=== PATIENT | female | born 1975 | race Caucasian/White ===

== ENCOUNTER 2019-05-12 00:01 | Inpatient (IN) | payer OTHER ==
[~2019-05-12] VITALS: Ht 157.5 cm; Wt 73.5 kg
[2019-05-12] MEDS ORDERED: LR 1,000 ML IV SCH (01:08)
[2019-05-12] MEDS ORDERED: LABETALOL HCL 100 MG TABLET PO SCH ×2 (01:30→09:00)
[2019-05-12 02:04] LABS: BASOPHILS % (AUTO) 0.6 % (0.0-2.0); EOSINOPHILS # (AUTO) 0.1 K/uL (0.0-0.4); EOSINOPHILS % (AUTO) 1.3 % (0.0-4.0); HEMATOCRIT 30.6 % (36-48); HEMOGLOBIN 10.2 g/dL (12.0-16.0); LYMPHOCYTES # (AUTO) 2.1 K/uL (1.0-5.5); LYMPHOCYTES % (AUTO) 25.8 % (20.5-51.5); MEAN CORPUSCULAR HEMOGLOBIN 28 pg (27-31); MEAN CORPUSCULAR HGB CONC 33 % (32-36); MEAN CORPUSCULAR VOLUME 84 fL (79.0-98.0); MONOCYTES # (AUTO) 0.6 K/uL (0.0-1.0); MONOCYTES % (AUTO) 7.7 % (1.7-9.3); NEUTROPHILS # (AUTO) 5.3 K/uL (1.8-7.7); NEUTROPHILS % (AUTO) 64.6 % (40.0-70.0); PLATELET COUNT (AUTO) 254 K/uL (130-430); RED BLOOD CELL COUNT(AUTO) 3.66 MIL/uL (4.2-6.2); RED CELL DISTRIBUTION WIDTH 13.7 % (9.0-15.0); WHITE BLOOD COUNT (AUTO) 8.2 K/uL (4.8-10.8)
[2019-05-12 02:10] LABS: CALCIUM 8.3 mg/dL (8.4-11.0); CREATININE 0.51 mg/dL (0.55-1.30); POTASSIUM 3.5 mmol/L (3.5-5.1)
[2019-05-12 02:17] LABS: ALBUMIN 2.3 g/dL (3.4-4.8); TOTAL BILIRUBIN 0.3 mg/dL (0.0-1.0)
== END 2019-05-12 09:30 | disposition home or self-care (01) | DRG 566 ==
LOC: OBSVTOIN 00:01 → SPU 00:01
PROVIDERS: ADMIT Obstetrics & Gynecology; ATTEND Obstetrics & Gynecology
DX: O16.3 Unspecified maternal hypertension, third trimester (principal); Z3A.34 34 weeks gestation of pregnancy
CPT/HCPCS: 36415; 80053; 85025; 86592; 86886; 86900; 86901

== ENCOUNTER 2019-05-13 06:45 | Observation (INO) | payer OTHER ==
[~2019-05-13] VITALS: Ht 157.5 cm; Wt 73.5 kg
[2019-05-13] MEDS ORDERED: LABETALOL HCL 100 MG TABLET PO ONE (08:00)
== END 2019-05-13 10:35 | disposition home or self-care (01) ==
LOC: SPU 06:45
PROVIDERS: ADMIT Obstetrics & Gynecology; ATTEND Obstetrics & Gynecology
DX: O26.893 Other specified pregnancy related conditions, third trimester (principal); R03.0 Elevated blood-pressure reading, without diagnosis of hypertension; Z3A.34 34 weeks gestation of pregnancy
CPT/HCPCS: G0378

== ENCOUNTER 2019-05-26 01:50 | Observation (INO) | payer OTHER | END 2019-05-26 03:50 | disposition home or self-care (01) | LOC: SPU 01:50 | PROVIDERS: ADMIT Obstetrics & Gynecology; ATTEND Obstetrics & Gynecology | DX: O62.9 Abnormality of forces of labor, unspecified (principal); Z3A.37 37 weeks gestation of pregnancy | CPT/HCPCS: G0378 ==

== ENCOUNTER 2019-05-28 11:00 | Observation (INO) | payer OTHER | END 2019-05-28 12:20 | disposition home or self-care (01) | LOC: SPU 11:00 | PROVIDERS: ADMIT Obstetrics & Gynecology; ATTEND Obstetrics & Gynecology | DX: O16.3 Unspecified maternal hypertension, third trimester (principal); Z3A.37 37 weeks gestation of pregnancy | CPT/HCPCS: G0378 ==

== ENCOUNTER 2019-06-01 09:30 | Inpatient (IN) | payer OTHER ==
[~2019-06-01] VITALS: Ht 154.9 cm; Wt 73.5 kg
[2019-06-01] MEDS ORDERED: LR 500 ML IV ONE (10:42)
[2019-06-01] MEDS ORDERED: LR 1,000 ML IV SCH (10:42)
[2019-06-01] MEDS ORDERED: OXYTOCIN/0.9 % SODIUM CHLORIDE 1,000 ML IV SCH (10:42)
[2019-06-01] MEDS ORDERED: LR 1,000 ML IV ONE (10:42)
[2019-06-01] MEDS ORDERED: DINOPROSTONE 10 MG SUPP VG ONE (10:45)
[2019-06-01] MEDS ORDERED: TERBUTALINE SULFATE 1 MG/ML VIAL SUBCUT ONE (10:45)
[2019-06-01 11:25] LABS: BASOPHILS # (AUTO) 0.1 K/uL (0.0-0.2); BASOPHILS % (AUTO) 0.6 % (0.0-2.0); EOSINOPHILS # (AUTO) 0.1 K/uL (0.0-0.4); EOSINOPHILS % (AUTO) 0.8 % (0.0-4.0); HEMATOCRIT 31.1 % (36-48); HEMOGLOBIN 10.5 g/dL (12.0-16.0); LYMPHOCYTES # (AUTO) 1.7 K/uL (1.0-5.5); LYMPHOCYTES % (AUTO) 20.6 % (20.5-51.5); MEAN CORPUSCULAR HEMOGLOBIN 28 pg (27-31); MEAN CORPUSCULAR HGB CONC 34 % (32-36); MEAN CORPUSCULAR VOLUME 83 fL (79.0-98.0); MONOCYTES # (AUTO) 0.6 K/uL (0.0-1.0); MONOCYTES % (AUTO) 7.6 % (1.7-9.3); NEUTROPHILS # (AUTO) 5.9 K/uL (1.8-7.7); NEUTROPHILS % (AUTO) 70.4 % (40.0-70.0); PLATELET COUNT (AUTO) 243 K/uL (130-430); RED BLOOD CELL COUNT(AUTO) 3.73 MIL/uL (4.2-6.2); RED CELL DISTRIBUTION WIDTH 14.8 % (9.0-15.0); WHITE BLOOD COUNT (AUTO) 8.3 K/uL (4.8-10.8)
[2019-06-01] MEDS ORDERED: LABETALOL HCL 100 MG TABLET PO ONE (12:15)
[2019-06-01] MEDS ORDERED: LABETALOL HCL 100 MG TABLET ONE (12:42)
[2019-06-01] MEDS: NALBUPHINE HCL 10 MG/ML AMP IM PRN (20:05)
[2019-06-01] MEDS: LABETALOL HCL 100 MG TABLET PO SCH (21:04)
[2019-06-02] MEDS: NALBUPHINE HCL 10 MG/ML AMP IM PRN (08:32)
[2019-06-02] MEDS ORDERED: fentaNYL CITRATE/PF 100 MCG/2 ML AMP ONE (08:33)
[2019-06-02] MEDS ORDERED: ROPIVACAINE HCL/PF 0.2% 0 ML ONE (08:34)
[2019-06-02] MEDS ORDERED: OXYTOCIN/0.9 % SODIUM CHLORIDE 1,000 ML IV ONE (17:50)
[2019-06-02] MEDS ORDERED: OXYTOCIN/0.9 % SODIUM CHLORIDE 1,000 ML IV SCH (17:50)
[2019-06-02] MEDS ORDERED: WITCH HAZEL LEAF 1 MED.PAD MED.PAD TP PRN (18:00)
[2019-06-02] MEDS ORDERED: LANOLIN 7 GM OINT. TP PRN (18:00)
[2019-06-02] MEDS ORDERED: SENNOSIDES/DOCUSATE SODIUM 1 TAB TABLET(SENOKOT-S) PO PRN (18:00)
[2019-06-02] MEDS ORDERED: METHYLERGONOVINE MALEATE 0.2 MG TABLET PO PRN (18:00)
[2019-06-02] MEDS ORDERED: DOCUSATE SODIUM 100 MG CAPSULE PO PRN (18:00)
[2019-06-02] MEDS ORDERED: IBUPROFEN 600 MG TABLET ONE (18:02)
[2019-06-02] MEDS: LABETALOL HCL 100 MG TABLET PO SCH (21:43)
[2019-06-03] MEDS ORDERED: IBUPROFEN 600 MG TABLET PO PRN (04:00)
[2019-06-03] MEDS ORDERED: IBUPROFEN 600 MG TABLET ONE (04:05)
[2019-06-03 06:07] LABS: HEMATOCRIT 25.8 % (36-48); HEMOGLOBIN 8.7 g/dL (12.0-16.0)
[2019-06-03] MEDS: LABETALOL HCL 100 MG TABLET PO SCH (10:01)
== END 2019-06-03 14:13 | disposition home or self-care (01) | DRG 560 ==
LOC: SPU 09:30 → OBSVTOIN 11:01 → SPU 06-02 21:32
PROVIDERS: ADMIT Obstetrics & Gynecology; ATTEND Obstetrics & Gynecology
PROC: 10E0XZZ Delivery of Products of Conception, External Approach (ICD-10-PCS; principal; 2019-06-02)
PROC: 3E033VJ Introduction of Other Hormone into Peripheral Vein, Percutaneous Approach (ICD-10-PCS; 2019-06-02)
PROC: 3E0R3BZ Introduction of Anesthetic Agent into Spinal Canal, Percutaneous Approach (ICD-10-PCS; 2019-06-02)
PROC: 00HU33Z Insertion of Infusion Device into Spinal Canal, Percutaneous Approach (ICD-10-PCS; 2019-06-02)
DX: O16.4 Unspecified maternal hypertension, complicating childbirth (principal); Z37.0 Single live birth; Z3A.37 37 weeks gestation of pregnancy
CPT/HCPCS: 36415; 85018-TC; 85025; 86886; 86900; 86901; 87536; G0378; J2300; J2590; J2795; J3010